=== PATIENT | female | born 1990 | race American Indian/Alaskan Native ===

== ENCOUNTER 2021-06-09 19:44 | Outpatient (CLI) | payer MEDICAID ==
[2021-06-09 20:21] VITALS: BP 113/58
--- NOTE | 2021-06-09 22:57 | Ultrasound Report ---
ULTRASOUND OBSTETRIC LIMITED INDICATION / CLINICAL INFORMATION: well being. Clinical Gestational Age (GA) in weeks, days: 28 weeks 1 day TECHNIQUE: Transabdominal. COMPARISON: None available. FINDINGS: Single live IUP in cephalic presentation. HEART RATE (beats per minute): 141 ADDITIONAL FINDINGS: Anterior placenta is free of the os. No evidence of placental abruption. Well-ci rcumscribed cystic structure in the retroplacental complex is of doubtful clinical significance and m ay reflect fibroid. IMPRESSION: 1. Single live intrauterine with heart rate measuring 141 bpm. 2. No acute abnormality. Signer Name: Dileep Mas MD Signed: 06/09/2021 10:53 PM Workstation Name: [id number]
== END 2021-06-09 22:39 | disposition home or self-care (01) ==
LOC: TRG 19:44 → APU 19:53 → TRG 22:39
PROVIDERS: ATTEND Obstetrics & Gynecology
DX: Z34.93 Encounter for supervision of normal pregnancy, unspecified, third trimester (principal); Z3A.28 28 weeks gestation of pregnancy
CPT/HCPCS: 59025; 76815

== ENCOUNTER 2021-08-07 09:09 | Inpatient (IN) | payer MEDICAID ==
--- NOTE | 2021-08-07 11:02 | History and Physical Report ---
History of Present Illness Date of examination: 08/07/21 Date of admission: 08/07/21 09:09 Chief complaint: scheduled induction due to obesity History of present illness: at 39.6wks by LMP c/w U/S. care at [facility] started at 26wks. Pt here for scheduled induction due to morbid obesity and was seen by [facility]. Pt admits to movement, denies LOF or vag bleed and not feeling ctx. labs with B positive, neg ab screen, rubella immune, VDRL, HepBsAg and HIV negative. 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: trichomonas (tx with flagyl this preg) - Obstetrical History Expected Date of Delivery: 08/08/21 Actual Gestation: 39 Week(s) 6 Day(s) : 6 Para: 3 Spontaneous Abortions: 2 Number of Living Children: 3 Medications and Allergies Allergies Allergy/AdvReac Type Severity Reaction Status Date / Time No Known Allergies Allergy Verified 08/07/21 10:25 Home Medications Medication Instructions Recorded Confirmed Last Taken Type Pnv with Ca,No.71/Iron/FA 1 cap PO DAILY 12/31/13 08/07/21 08/06/21 08:00 History [Vol-Plus Tablet] Review of Systems All systems: negative (none) - Vital Signs Vital signs: Vital Signs Pulse Pulse Ox 74 99 08/07/21 10:19 08/07/21 10:19 Temp Pulse Resp BP Pulse Ox 98.3 F 78 20 108/58 100 08/07/21 10:30 08/07/21 10:59 08/07/21 10:30 08/07/21 10:52 08/07/21 10:59 - Physical Exam Breasts: Positive: deferred Cardiovascular: Regular rate Lungs: Positive: Normal air movement Genitourinary (Female): Positive: normal external genitalia Vulva: both: normal (per nurse report) Uterus: Positive: enlarged - Obstetrical FHR: category 1 Uterine Contraction Monitor Mode: External Cervical Dilatation: 0 Cervical Effacement Percentage: 0 station: -2 Results Result Diagrams: 08/07/21 09:50 All other labs normal. Assessment and Plan Term preg, morbid obesity with non-favorable cervix, here for induction, GBS positive 1. Admit to labor and delivery 2. Labs seen with asymptomatic anemia 3. Cervidil induction 4. May have IV pain med or epidural when desired 5. Plan of care discussed. U/S done by me at bedside to verify vertex presentation. All questions encouraged and answered
[2021-08-07] MEDS ORDERED: miSOPROStol 200 MCG TAB PR PRN (11:03)
[2021-08-07] MEDS ORDERED: MINERAL OIL 30 ML ORAL LIQD PO PRN (11:03)
[2021-08-07] MEDS ORDERED: TERBUTALINE 1 MG/1 ML INJ SUB-Q PRN (11:03)
[2021-08-07] MEDS ORDERED: METHYLERGONOVINE MALEATE 0.2 MG/ML VIAL IM PRN (11:03)
[2021-08-07] MEDS ORDERED: AMPICILLIN/NS 2 GM/100 ML 2 GM/100 ML BAG IV ONE (11:03)
[2021-08-07] MEDS ORDERED: fentaNYL 100 MCG/2 ML INJ IV PRN (11:03)
[2021-08-07] MEDS ORDERED: ONDANSETRON 4 MG/2 ML INJ IV PRN (11:03)
[2021-08-07] MEDS ORDERED: ACETAMINOPHEN 325 MG TAB PO PRN (11:03)
[2021-08-07] MEDS ORDERED: DINOPROSTONE 10 MG VAG SUPP VG ONE (11:03)
[2021-08-07] MEDS ORDERED: LOPERAMIDE 2 MG CAP PO PRN (11:03)
[2021-08-07] MEDS ORDERED: NalbUPHINE 10 MG/1 ML INJ IV PRN (11:03)
[2021-08-07] MEDS ORDERED: PROMETHAZINE 25 MG RECT SUPP PR PRN (11:03)
[2021-08-07] MEDS ORDERED: ePHEDrine SULFATE 50 MG/1 ML INJ IV PRN (11:03)
[2021-08-07] MEDS ORDERED: LIDOCAINE (2%) 20 MG/1 ML VIAL 20 ML MDV INFILTRATI ONE (11:03)
[2021-08-07] MEDS ORDERED: OXYTOCIN 10 UNIT/1 ML INJ IM PRN (11:03)
[2021-08-07] MEDS ORDERED: CARBOPROST TROMETHAMINE 250 MCG/1 ML INJ IM PRN (11:03)
[2021-08-07 11:39] LABS: Hematocrit 31.2 % (30.3-42.9); Hemoglobin 9.8 gm/dl (10.1-14.3); Mean Corpuscular HGB Conc 32 % (30-34); Mean Corpuscular Volume 81 fl (79-97); Platelet Count 220 K/mm3 (140-440); Red Blood Count 3.85 M/mm3 (3.65-5.03)
[2021-08-07] MEDS ORDERED: OXYTOCIN DRIP 30 UNITS/500 ML BAG IV SCH (12:00)
[2021-08-07] MEDS ORDERED: DINOPROSTONE 10 MG VAG SUPP VG SCH (12:00)
[2021-08-08] MEDS: LACTATED RINGERS 1,000 ML IV SCH ×2 (01:52→07:31)
[2021-08-08] MEDS ORDERED: DINOPROSTONE 10 MG VAG SUPP VG ONE (02:30)
--- NOTE | 2021-08-08 18:11 | Progress Note ---
Assessment and Plan A: IUP@ 40 wks IOL for obesity GBS pos p: Continue routine L&D orders GBS protocal Continue cervical Pain med/Epidural prn Anticipate Subjective - Subjective Date of service: 08/08/21 (late entry for 8:20am) Principal diagnosis: IUP@ 40 wks Patient reports: movement normal, contractions Objective - Vital Signs Vital Signs: Vital Signs - 12hr 08/08/21 08/08/21 08/08/21 06:09 06:14 06:19 Temperature Pulse Rate 80 80 94 H Respiratory Rate Blood Pressure O2 Sat by Pulse 99 100 100 Oximetry O2 Sat by Pulse Oximetry [ Posterior Bilateral Throughout] 08/08/21 08/08/21 08/08/21 06:24 06:29 06:34 Temperature Pulse Rate 77 79 76 Respiratory Rate Blood Pressure O2 Sat by Pulse 100 99 99 Oximetry O2 Sat by Pulse Oximetry [ Posterior Bilateral Throughout] 08/08/21 08/08/21 08/08/21 06:39 06:44 06:49 Temperature Pulse Rate 70 76 74 Respiratory Rate Blood Pressure O2 Sat by Pulse 99 99 99 Oximetry O2 Sat by Pulse Oximetry [ Posterior Bilateral Throughout] 08/08/21 08/08/21 08/08/21 06:54 06:59 07:04 Temperature Pulse Rate 73 76 72 Respiratory Rate Blood Pressure O2 Sat by Pulse 100 99 99 Oximetry O2 Sat by Pulse Oximetry [ Posterior Bilateral Throughout] 08/08/21 08/08/21 08/08/21 07:09 07:14 07:17 Temperature 98.4 F Pulse Rate 82 83 86 Respiratory 18 Rate Blood Pressure O2 Sat by Pulse 99 99 100 Oximetry O2 Sat by Pulse Oximetry [ Posterior Bilateral Throughout] 08/08/21 08/08/21 08/08/21 07:19 07:24 07:29 Temperature Pulse Rate 83 81 69 Respiratory Rate Blood Pressure 106/56 O2 Sat by Pulse 99 100 100 Oximetry O2 Sat by Pulse 100 Oximetry [ Posterior Bilateral Throughout] 08/08/21 08/08/21 08/08/21 07:34 07:39 07:44 Temperature Pulse Rate 77 83 82 Respiratory Rate Blood Pressure O2 Sat by Pulse 99 100 99 Oximetry O2 Sat by Pulse Oximetry [ Posterior Bilateral Throughout] 08/08/21 08/08/21 08/08/21 07:49 07:54 07:59 Temperature Pulse Rate 76 73 71 Respiratory Rate Blood Pressure O2 Sat by Pulse 100 100 100 Oximetry O2 Sat by Pulse Oximetry [ Posterior Bilateral Throughout] 08/08/21 08/08/21 08/08/21 08:04 08:14 08:19 Temperature Pulse Rate 74 75 78 Respiratory Rate Blood Pressure O2 Sat by Pulse 99 100 100 Oximetry O2 Sat by Pulse Oximetry [ Posterior Bilateral Throughout] 08/08/21 08/08/21 08/08/21 08:24 08:29 08:34 Temperature Pulse Rate 77 76 82 Respiratory Rate Blood Pressure O2 Sat by Pulse 100 99 100 Oximetry O2 Sat by Pulse Oximetry [ Posterior Bilateral Throughout] 08/08/21 08/08/21 08/08/21 08:39 08:44 08:49 Temperature Pulse Rate 82 82 83 Respiratory Rate Blood Pressure O2 Sat by Pulse 100 99 99 Oximetry O2 Sat by Pulse Oximetry [ Posterior Bilateral Throughout] 08/08/21 08/08/21 08/08/21 09:00 09:05 09:10 Temperature Pulse Rate 87 83 80 Respiratory Rate Blood Pressure O2 Sat by Pulse 100 99 100 Oximetry O2 Sat by Pulse Oximetry [ Posterior Bilateral Throughout] 08/08/21 08/08/21 08/08/21 09:15 09:18 09:20 Temperature Pulse Rate 83 84 77 Respiratory Rate Blood Pressure O2 Sat by Pulse 100 89 98 Oximetry O2 Sat by Pulse Oximetry [ Posterior Bilateral Throughout] 08/08/21 08/08/21 08/08/21 09:25 09:30 09:35 Temperature Pulse Rate 82 69 80 Respiratory Rate Blood Pressure O2 Sat by Pulse 98 98 99 Oximetry O2 Sat by Pulse Oximetry [ Posterior Bilateral Throughout] 08/08/21 08/08/21 08/08/21 09:40 09:45 09:52 Temperature Pulse Rate 75 86 86 Respiratory Rate Blood Pressure O2 Sat by Pulse 100 100 100 Oximetry O2 Sat by Pulse Oximetry [ Posterior Bilateral Throughout] 08/08/21 08/08/21 08/08/21 09:57 10:02 10:07 Temperature Pulse Rate 78 76 78 Respiratory Rate Blood Pressure O2 Sat by Pulse 99 99 99 Oximetry O2 Sat by Pulse Oximetry [ Posterior Bilateral Throughout] 08/08/21 08/08/21 08/08/21 10:12 10:17 10:22 Temperature Pulse Rate 74 83 80 Respiratory Rate Blood Pressure O2 Sat by Pulse 99 99 99 Oximetry O2 Sat by Pulse Oximetry [ Posterior Bilateral Throughout] 08/08/21 08/08/21 08/08/21 10:27 10:32 10:37 Temperature Pulse Rate 76 75 78 Respiratory Rate Blood Pressure O2 Sat by Pulse 99 98 98 Oximetry O2 Sat by Pulse Oximetry [ Posterior Bilateral Throughout] 08/08/21 08/08/21 08/08/21 10:42 10:47 10:52 Temperature Pulse Rate 78 77 79 Respiratory Rate Blood Pressure O2 Sat by Pulse 99 99 98 Oximetry O2 Sat by Pulse Oximetry [ Posterior Bilateral Throughout] 08/08/21 08/08/21 08/08/21 10:57 11:02 11:07 Temperature Pulse Rate 80 77 78 Respiratory Rate Blood Pressure O2 Sat by Pulse 99 99 98 Oximetry O2 Sat by Pulse Oximetry [ Posterior Bilateral Throughout] 08/08/21 08/08/21 08/08/21 11:12 11:17 11:22 Temperature Pulse Rate 79 74 74 Respiratory Rate Blood Pressure O2 Sat by Pulse 98 100 99 Oximetry O2 Sat by Pulse Oximetry [ Posterior Bilateral Throughout] 08/08/21 08/08/21 08/08/21 11:23 11:25 11:27 Temperature 98.3 F Pulse Rate 81 86 Respiratory 18 Rate Blood Pressure 105/50 O2 Sat by Pulse 99 100 Oximetry O2 Sat by Pulse Oximetry [ Posterior Bilateral Throughout] 08/08/21 08/08/21 08/08/21 11:32 11:33 11:37 Temperature Pulse Rate 81 83 77 Respiratory Rate Blood Pressure O2 Sat by Pulse 100 92 98 Oximetry O2 Sat by Pulse Oximetry [ Posterior Bilateral Throughout] 08/08/21 08/08/21 08/08/21 11:42 11:47 11:52 Temperature Pulse Rate 74 72 77 Respiratory Rate Blood Pressure O2 Sat by Pulse 98 98 98 Oximetry O2 Sat by Pulse Oximetry [ Posterior Bilateral Throughout] 08/08/21 08/08/21 08/08/21 11:57 12:02 12:07 Temperature Pulse Rate 73 75 79 Respiratory Rate Blood Pressure O2 Sat by Pulse 97 97 98 Oximetry O2 Sat by Pulse Oximetry [ Posterior Bilateral Throughout] 08/08/21 08/08/21 08/08/21 12:12 12:17 12:22 Temperature Pulse Rate 68 68 73 Respiratory Rate Blood Pressure O2 Sat by Pulse 99 98 98 Oximetry O2 Sat by Pulse Oximetry [ Posterior Bilateral Throughout] 08/08/21 08/08/21 08/08/21 12:27 12:32 12:37 Temperature Pulse Rate 79 78 75 Respiratory Rate Blood Pressure O2 Sat by Pulse 98 99 99 Oximetry O2 Sat by Pulse Oximetry [ Posterior Bilateral Throughout] 08/08/21 08/08/21 08/08/21 12:42 12:47 12:52 Temperature Pulse Rate 80 75 74 Respiratory Rate Blood Pressure O2 Sat by Pulse 98 100 100 Oximetry O2 Sat by Pulse Oximetry [ Posterior Bilateral Throughout] 08/08/21 08/08/21 08/08/21 12:57 13:02 13:07 Temperature Pulse Rate 88 71 77 Respiratory Rate Blood Pressure O2 Sat by Pulse 100 100 100 Oximetry O2 Sat by Pulse Oximetry [ Posterior Bilateral Throughout] 08/08/21 08/08/21 08/08/21 13:12 13:17 13:22 Temperature Pulse Rate 73 74 74 Respiratory Rate Blood Pressure O2 Sat by Pulse 100 100 100 Oximetry O2 Sat by Pulse Oximetry [ Posterior Bilateral Throughout] 08/08/21 08/08/21 08/08/21 13:27 13:32 13:37 Temperature Pulse Rate 77 77 88 Respiratory Rate Blood Pressure O2 Sat by Pulse 100 100 100 Oximetry O2 Sat by Pulse Oximetry [ Posterior Bilateral Throughout] 08/08/21 08/08/21 08/08/21 13:42 13:47 13:52 Temperature Pulse Rate 79 78 80 Respiratory Rate Blood Pressure O2 Sat by Pulse 100 100 100 Oximetry O2 Sat by Pulse Oximetry [ Posterior Bilateral Throughout] 08/08/21 08/08/21 08/08/21 13:57 14:02 14:07 Temperature Pulse Rate 78 82 76 Respiratory Rate Blood Pressure O2 Sat by Pulse 99 99 100 Oximetry O2 Sat by Pulse Oximetry [ Posterior Bilateral Throughout] 08/08/21 08/08/21 08/08/21 14:12 14:17 14:22 Temperature Pulse Rate 77 75 84 Respiratory Rate Blood Pressure O2 Sat by Pulse 100 100 100 Oximetry O2 Sat by Pulse Oximetry [ Posterior Bilateral Throughout] 08/08/21 08/08/21 08/08/21 14:26 14:27 14:32 Temperature 98.9 F Pulse Rate 81 79 78 Respiratory 16 Rate Blood Pressure 122/57 O2 Sat by Pulse 99 100 Oximetry O2 Sat by Pulse Oximetry [ Posterior Bilateral Throughout] 08/08/21 08/08/21 08/08/21 14:37 14:42 14:47 Temperature Pulse Rate 79 79 78 Respiratory Rate Blood Pressure O2 Sat by Pulse 99 100 100 Oximetry O2 Sat by Pulse Oximetry [ Posterior Bilateral Throughout] 08/08/21 08/08/21 08/08/21 14:52 14:57 15:02 Temperature Pulse Rate 78 75 74 Respiratory Rate Blood Pressure O2 Sat by Pulse 99 99 99 Oximetry O2 Sat by Pulse Oximetry [ Posterior Bilateral Throughout] 08/08/21 08/08/21 08/08/21 15:07 15:12 15:22 Temperature Pulse Rate 80 79 79 Respiratory Rate Blood Pressure O2 Sat by Pulse 99 99 100 Oximetry O2 Sat by Pulse Oximetry [ Posterior Bilateral Throughout] 08/08/21 08/08/21 08/08/21 15:27 15:32 15:37 Temperature Pulse Rate 81 81 76 Respiratory Rate Blood Pressure O2 Sat by Pulse 100 99 100 Oximetry O2 Sat by Pulse Oximetry [ Posterior Bilateral Throughout] 08/08/21 08/08/21 08/08/21 15:42 15:47 15:52 Temperature Pulse Rate 79 79 80 Respiratory Rate Blood Pressure O2 Sat by Pulse 100 100 100 Oximetry O2 Sat by Pulse Oximetry [ Posterior Bilateral Throughout] 08/08/21 08/08/21 08/08/21 15:57 16:02 16:07 Temperature Pulse Rate 81 92 H 75 Respiratory Rate Blood Pressure O2 Sat by Pulse 100 100 100 Oximetry O2 Sat by Pulse Oximetry [ Posterior Bilateral Throughout] 08/08/21 16:09 Temperature Pulse Rate 70 Respiratory Rate Blood Pressure O2 Sat by Pulse 83 L Oximetry O2 Sat by Pulse Oximetry [ Posterior Bilateral Throughout] - Exam Breasts: deferred Abdomen: Present: normal appearance, soft, normal bowel sounds, other (gravid) Vulva: both: normal FHR: auscultation normal, category 1 Uterine Contraction Monitor Mode: External Uterine Contraction Pattern: Irregular Uterine Tone Measurement Phase: Resting Uterine Contraction Intensity: Mild Extremities: normal - Labs Labs: Abnormal Labs 08/07/21 09:50 Hgb 9.8 L MCH 25 L RDW 19.0 H Laboratory Results - last 24 hr 08/07/21 09:50 Syphilis IgG Antibody Nonreactive
[2021-08-08] MEDS: miSOPROStol 25 MCG TAB PO SCH ×2 (18:37→22:54)
[2021-08-09] MEDS: miSOPROStol 25 MCG TAB PO SCH (03:00)
[2021-08-09] MEDS ORDERED: AMPICILLIN/NS 2 GM/100 ML 2 GM/100 ML BAG IV ONE (09:02)
[2021-08-09] MEDS: OXYTOCIN DRIP 30 UNITS/500 ML BAG IV SCH ×2 (09:12→09:30)
[2021-08-09] MEDS: AMPICILLIN/NS 1 GM/50 ML 1 GM/50 ML BAG IV SCH ×2 (13:18→17:23)
[2021-08-09] MEDS: LACTATED RINGERS 1,000 ML IV SCH ×4 (16:46→18:32)
[2021-08-09] MEDS ORDERED: ePHEDrine SULFATE 50 MG/1 ML INJ IV PRN (17:13)
[2021-08-09] MEDS ORDERED: diphenhydrAMINE 50 MG/ML VIAL IV PRN (17:13)
[2021-08-09] MEDS ORDERED: NALOXONE 2 MG/2 ML INJ IV PRN (17:13)
[2021-08-09] MEDS ORDERED: ONDANSETRON 4 MG/2 ML INJ IV PRN (17:13)
[2021-08-09] MEDS ORDERED: NalbUPHINE 10 MG/1 ML INJ IV PRN (17:13)
--- NOTE | 2021-08-09 17:19 | Anesthesia Consultation ---
Anesthesia Consult and Med Hx Date of service: 08/09/21 - Airway Anesthetic Teeth Evaluation: Good ROM Head & Neck: Adequate Mental/Hyoid Distance: Adequate Mallampati Class: Class III Intubation Access Assessment: Possibly Difficult - Pulmonary Exam CTA: Yes - Cardiac Exam Cardiac Exam: RRR - Pre-Operative Health Status ASA Pre-Surgery Classification: ASA2 Proposed Anesthetic Plan: Epidural - Pulmonary Hx Smoking: No Hx Asthma: Yes (last attack was at 3yo) COPD: No Hx Pneumonia: No Hx Sleep Apnea: No - Cardiovascular System Hx Hypertension: No Hx Heart Attack/AMI: No Hx Angina: No - Central Nervous System Hx Seizures: No Hx Psychiatric Problems: No - Gastrointestinal Hx Gastroesophageal Reflux Disease: No - Endocrine Hx Renal Disease: No Hx End Stage Renal Disease: No Hx Liver Disease: No Hx Insulin Dependent Diabetes: No Hx Non-Insulin Dependent Diabetes: No Hx Hypothyroidism: No Hx Hyperthyroidism: No - Hematic Hx Anemia: No Hx Sickle Cell Disease: No - Other Systems Hx Alcohol Use: No Hx Obesity: Yes (morbid obesity)
--- NOTE | 2021-08-09 17:49 | Progress Note ---
Labor Epidural - Labor Epidural Start Time: 17:35 Stop Time: 17:49 Performed by:: HONG ALDRIDGE (Adry Blood RAMONE) Procedure: Patient is requesting epidural for labor and pain. H&P, labs were reviewed. Patient IDed, H&P reviewed, all questions and concerns were answered, and consent was signed. Timeout was performed at bedside. Patient in sitting position. Sterile prep and drape was performed. 3ml of 1% lidocaine skin wheal at L[3]- L [4]. 17-gauge Tuohy epidural needle was advanced to loss of resistance with air technique 7cm. Negative CSF negative blood. Epidural catheter advanced to [12] centimeters. [negative] Aspiration [negative] test dose. Sterile dressing applied. Patient tolerated procedure.
[2021-08-09] MEDS ORDERED: LACTATED RINGERS 250 ML IV SOLN IV ONE (18:00)
[2021-08-09] MEDS ORDERED: fentaNYL-BUPIV 2 MCG/ML-0.125% 200 MCG/100 ML BAG EPIDURAL SCH (18:00)
--- NOTE | 2021-08-09 20:47 | Event Note ---
Date: 08/09/21 pt seen earlier and pelvic exam unchanged. Epidural recommended and pt accepted same and received epidural and now comfortable. IV Pitocin at 14mu/min. AROM done with copious clear fluid. IUPC placed without difficulty and FSE also placed with areas of loss of contact. Pt to continue Amp for GBS positive. Will continue augmentation with pitocin and position laterally. Anticipate vaginal delivery.
--- NOTE | 2021-08-09 21:27 | Event Note ---
Date: 08/09/21 Pt re-evaluated with recurrent late decel and pelvic now /-1, pt repositioned and pitocin turned off. scalp stimulation with excellent response. Ctx occured every 1min and when pitocin off, FHR returned to category II. Will re-evaluate in 30mins. Expect .
--- NOTE | 2021-08-09 23:18 | Procedure Note ---
OB Delivery Note - Delivery Date of Delivery: 08/09/21 Surgeon: LUCIEN ULLOA Estimated blood loss: 300cc - Vaginal Delivery presentation: vertex Delivery position: OA Intrapartum events: prolonged active phase, mult. late decelerations Delivery induction: cervidil Delivery augmentation: rupture of membranes, pitocin (and pt received cytotec after cervidil prior to pitocin) Delivery monitor: external FHT, external uterine, internal FHT, internal uterine Route of delivery: Delivery placenta: spontaneous Delivery cord: 3 umbilical vessels Episiotomy: none Delivery laceration: 1st degree (to perineum and right and left labia) Delivery repair: chromic (2-chromic running locked suture) Anesthesia: epidural Delivery comments: Protracted active phase over 2-3day induction. Recurrent late decel resolved with repositioning. SAVD of viable male , APGARS 8/9; Placenta delivered complete and lacerations 1st degree x3 sustained and repaired with 2-0 chromic interrupted. Cervix visualized and noted to have no lacerations. Bimanual done and pt given cytotec due to protracted 3 day induction with multiple agents. Mom and baby stable. EBL 300cc - Infant A at 1 minute: 8 at 5 minutes: 9 (wt 3050g, blood tinged fluid) Infant Gender: Male
--- NOTE | 2021-08-10 00:28 | Progress Note ---
Assessment and Plan PPD#1 doing fair 1. Routine care 2. Await CBC 12 hrs post delivery per routine check All questions encouraged and answered Subjective Date of service: 08/10/21 Principal diagnosis: PPD#1 Interval history: Pt comfortable. Pt desires to breast and bottle feed. vag bleed like a period without clots. Pt has voided since delivery Objective - Constitutional Vitals: Vital Signs - 12hr 08/09/21 08/09/21 08/09/21 12:30 12:31 12:36 Temperature Pulse Rate 75 76 86 Respiratory Rate Blood Pressure 121/73 Blood Pressure [Left] O2 Sat by Pulse 100 100 Oximetry O2 Sat by Pulse Oximetry [ Posterior Bilateral Throughout] 08/09/21 08/09/21 08/09/21 12:41 12:46 12:51 Temperature Pulse Rate 77 71 76 Respiratory Rate Blood Pressure 123/61 Blood Pressure [Left] O2 Sat by Pulse 100 100 100 Oximetry O2 Sat by Pulse Oximetry [ Posterior Bilateral Throughout] 08/09/21 08/09/21 08/09/21 12:56 13:00 13:01 Temperature Pulse Rate 76 73 75 Respiratory Rate Blood Pressure 112/60 Blood Pressure [Left] O2 Sat by Pulse 100 100 Oximetry O2 Sat by Pulse Oximetry [ Posterior Bilateral Throughout] 08/09/21 08/09/21 08/09/21 13:06 13:14 13:19 Temperature Pulse Rate 75 87 78 Respiratory Rate Blood Pressure Blood Pressure [Left] O2 Sat by Pulse 100 100 100 Oximetry O2 Sat by Pulse Oximetry [ Posterior Bilateral Throughout] 08/09/21 08/09/21 08/09/21 13:24 13:29 13:34 Temperature Pulse Rate 71 67 67 Respiratory Rate Blood Pressure Blood Pressure [Left] O2 Sat by Pulse 100 99 99 Oximetry O2 Sat by Pulse Oximetry [ Posterior Bilateral Throughout] 08/09/21 08/09/21 08/09/21 13:39 13:44 13:49 Temperature Pulse Rate 63 62 63 Respiratory Rate Blood Pressure Blood Pressure [Left] O2 Sat by Pulse 99 100 100 Oximetry O2 Sat by Pulse Oximetry [ Posterior Bilateral Throughout] 08/09/21 08/09/21 08/09/21 13:54 13:59 14:04 Temperature Pulse Rate 69 64 67 Respiratory Rate Blood Pressure Blood Pressure [Left] O2 Sat by Pulse 100 100 100 Oximetry O2 Sat by Pulse Oximetry [ Posterior Bilateral Throughout] 08/09/21 08/09/21 08/09/21 14:09 14:14 14:19 Temperature Pulse Rate 69 70 69 Respiratory Rate Blood Pressure Blood Pressure [Left] O2 Sat by Pulse 100 100 99 Oximetry O2 Sat by Pulse Oximetry [ Posterior Bilateral Throughout] 08/09/21 08/09/21 08/09/21 14:24 14:29 14:30 Temperature Pulse Rate 65 62 65 Respiratory Rate Blood Pressure 119/59 Blood Pressure [Left] O2 Sat by Pulse 100 100 Oximetry O2 Sat by Pulse Oximetry [ Posterior Bilateral Throughout] 08/09/21 08/09/21 08/09/21 14:34 14:39 14:44 Temperature Pulse Rate 66 68 64 Respiratory Rate Blood Pressure Blood Pressure [Left] O2 Sat by Pulse 99 99 99 Oximetry O2 Sat by Pulse Oximetry [ Posterior Bilateral Throughout] 08/09/21 08/09/21 08/09/21 14:49 14:54 14:59 Temperature Pulse Rate 67 69 67 Respiratory Rate Blood Pressure Blood Pressure [Left] O2 Sat by Pulse 100 100 100 Oximetry O2 Sat by Pulse Oximetry [ Posterior Bilateral Throughout] 08/09/21 08/09/21 08/09/21 15:01 15:04 15:09 Temperature Pulse Rate 71 69 67 Respiratory Rate Blood Pressure 125/66 Blood Pressure [Left] O2 Sat by Pulse 100 100 Oximetry O2 Sat by Pulse Oximetry [ Posterior Bilateral Throughout] 08/09/21 08/09/21 08/09/21 15:14 15:19 15:24 Temperature Pulse Rate 69 67 68 Respiratory Rate Blood Pressure Blood Pressure [Left] O2 Sat by Pulse 99 100 100 Oximetry O2 Sat by Pulse Oximetry [ Posterior Bilateral Throughout] 08/09/21 08/09/21 08/09/21 15:29 15:31 15:34 Temperature Pulse Rate 69 64 68 Respiratory Rate Blood Pressure 119/65 Blood Pressure [Left] O2 Sat by Pulse 100 100 Oximetry O2 Sat by Pulse Oximetry [ Posterior Bilateral Throughout] 08/09/21 08/09/21 08/09/21 15:39 15:44 15:49 Temperature Pulse Rate 78 67 71 Respiratory Rate Blood Pressure Blood Pressure [Left] O2 Sat by Pulse 100 100 100 Oximetry O2 Sat by Pulse Oximetry [ Posterior Bilateral Throughout] 08/09/21 08/09/21 08/09/21 15:54 15:59 16:00 Temperature Pulse Rate 63 70 69 Respiratory Rate Blood Pressure 116/67 Blood Pressure [Left] O2 Sat by Pulse 100 100 Oximetry O2 Sat by Pulse Oximetry [ Posterior Bilateral Throughout] 08/09/21 08/09/21 08/09/21 16:04 16:09 16:14 Temperature Pulse Rate 69 69 65 Respiratory Rate Blood Pressure Blood Pressure [Left] O2 Sat by Pulse 100 100 100 Oximetry O2 Sat by Pulse Oximetry [ Posterior Bilateral Throughout] 08/09/21 08/09/21 08/09/21 16:15 16:19 16:24 Temperature 98.1 F Pulse Rate 66 66 Respiratory 18 Rate Blood Pressure Blood Pressure [Left] O2 Sat by Pulse 100 100 Oximetry O2 Sat by Pulse Oximetry [ Posterior Bilateral Throughout] 08/09/21 08/09/21 08/09/21 16:29 16:31 16:34 Temperature Pulse Rate 76 67 83 Respiratory Rate Blood Pressure 120/67 Blood Pressure [Left] O2 Sat by Pulse 100 100 Oximetry O2 Sat by Pulse Oximetry [ Posterior Bilateral Throughout] 08/09/21 08/09/21 08/09/21 16:39 16:44 16:55 Temperature Pulse Rate 72 75 68 Respiratory Rate Blood Pressure Blood Pressure [Left] O2 Sat by Pulse 100 100 100 Oximetry O2 Sat by Pulse Oximetry [ Posterior Bilateral Throughout] 08/09/21 08/09/21 08/09/21 17:00 17:05 17:10 Temperature Pulse Rate 72 76 80 Respiratory Rate Blood Pressure 118/61 Blood Pressure [Left] O2 Sat by Pulse 100 100 100 Oximetry O2 Sat by Pulse Oximetry [ Posterior Bilateral Throughout] 08/09/21 08/09/21 08/09/21 17:15 17:20 17:25 Temperature Pulse Rate 74 82 75 Respiratory Rate Blood Pressure Blood Pressure [Left] O2 Sat by Pulse 100 100 100 Oximetry O2 Sat by Pulse Oximetry [ Posterior Bilateral Throughout] 08/09/21 08/09/21 08/09/21 17:30 17:31 17:35 Temperature Pulse Rate 80 84 85 Respiratory Rate Blood Pressure Blood Pressure [Left] O2 Sat by Pulse 100 89 100 Oximetry O2 Sat by Pulse Oximetry [ Posterior Bilateral Throughout] 08/09/21 08/09/21 08/09/21 17:40 17:45 17:46 Temperature Pulse Rate 86 89 88 Respiratory Rate Blood Pressure 135/60 Blood Pressure [Left] O2 Sat by Pulse 100 100 Oximetry O2 Sat by Pulse Oximetry [ Posterior Bilateral Throughout] 08/09/21 08/09/21 08/09/21 17:47 17:50 17:52 Temperature Pulse Rate 85 78 91 H Respiratory Rate Blood Pressure 134/63 131/71 131/63 Blood Pressure [Left] O2 Sat by Pulse 100 Oximetry O2 Sat by Pulse Oximetry [ Posterior Bilateral Throughout] 08/09/21 08/09/21 08/09/21 17:53 17:55 17:58 Temperature Pulse Rate 80 93 H 94 H Respiratory Rate Blood Pressure 127/59 132/56 119/74 Blood Pressure [Left] O2 Sat by Pulse 100 Oximetry O2 Sat by Pulse Oximetry [ Posterior Bilateral Throughout] 08/09/21 08/09/21 08/09/21 18:00 18:02 18:03 Temperature Pulse Rate 92 H 92 H 79 Respiratory Rate Blood Pressure 105/65 125/56 122/58 Blood Pressure [Left] O2 Sat by Pulse 100 Oximetry O2 Sat by Pulse Oximetry [ Posterior Bilateral Throughout] 08/09/21 08/09/21 08/09/21 18:05 18:07 18:09 Temperature Pulse Rate 71 75 76 Respiratory Rate Blood Pressure 123/59 107/67 104/52 Blood Pressure [Left] O2 Sat by Pulse 100 Oximetry O2 Sat by Pulse Oximetry [ Posterior Bilateral Throughout] 08/09/21 08/09/21 08/09/21 18:10 18:11 18:14 Temperature Pulse Rate 76 83 79 Respiratory Rate Blood Pressure 111/55 113/56 Blood Pressure [Left] O2 Sat by Pulse 100 Oximetry O2 Sat by Pulse Oximetry [ Posterior Bilateral Throughout] 08/09/21 08/09/21 08/09/21 18:15 18:17 18:19 Temperature Pulse Rate 76 82 75 Respiratory Rate Blood Pressure 116/58 114/56 116/58 Blood Pressure [Left] O2 Sat by Pulse 100 Oximetry O2 Sat by Pulse Oximetry [ Posterior Bilateral Throughout] 08/09/21 08/09/21 08/09/21 18:20 18:21 18:23 Temperature Pulse Rate 76 86 60 Respiratory Rate Blood Pressure 111/59 116/59 Blood Pressure [Left] O2 Sat by Pulse 100 Oximetry O2 Sat by Pulse Oximetry [ Posterior Bilateral Throughout] 08/09/21 08/09/21 08/09/21 18:25 18:27 18:29 Temperature Pulse Rate 78 78 76 Respiratory Rate Blood Pressure 122/57 120/59 122/55 Blood Pressure [Left] O2 Sat by Pulse 100 Oximetry O2 Sat by Pulse Oximetry [ Posterior Bilateral Throughout] 08/09/21 08/09/21 08/09/21 18:30 18:31 18:35 Temperature Pulse Rate 74 72 71 Respiratory Rate Blood Pressure 124/58 Blood Pressure [Left] O2 Sat by Pulse 100 100 Oximetry O2 Sat by Pulse Oximetry [ Posterior Bilateral Throughout] 08/09/21 08/09/21 08/09/21 18:40 18:45 18:47 Temperature Pulse Rate 74 71 65 Respiratory Rate Blood Pressure 117/57 Blood Pressure [Left] O2 Sat by Pulse 100 100 Oximetry O2 Sat by Pulse Oximetry [ Posterior Bilateral Throughout] 08/09/21 08/09/21 08/09/21 18:50 18:55 19:00 Temperature Pulse Rate 70 73 72 Respiratory Rate Blood Pressure Blood Pressure [Left] O2 Sat by Pulse 100 100 100 Oximetry O2 Sat by Pulse Oximetry [ Posterior Bilateral Throughout] 08/09/21 08/09/21 08/09/21 19:02 19:05 19:10 Temperature Pulse Rate 67 72 76 Respiratory Rate Blood Pressure 110/55 Blood Pressure [Left] O2 Sat by Pulse 100 100 Oximetry O2 Sat by Pulse Oximetry [ Posterior Bilateral Throughout] 08/09/21 08/09/21 08/09/21 19:15 19:17 19:20 Temperature Pulse Rate 90 78 73 Respiratory Rate Blood Pressure 101/55 Blood Pressure [Left] O2 Sat by Pulse 99 100 Oximetry O2 Sat by Pulse Oximetry [ Posterior Bilateral Throughout] 08/09/21 08/09/21 08/09/21 19:22 19:25 19:30 Temperature Pulse Rate 76 73 Respiratory Rate Blood Pressure Blood Pressure [Left] O2 Sat by Pulse 100 100 Oximetry O2 Sat by Pulse 100 Oximetry [ Posterior Bilateral Throughout] 08/09/21 08/09/21 08/09/21 19:32 19:35 19:40 Temperature Pulse Rate 65 68 77 Respiratory Rate Blood Pressure 95/54 Blood Pressure [Left] O2 Sat by Pulse 100 100 Oximetry O2 Sat by Pulse Oximetry [ Posterior Bilateral Throughout] 08/09/21 08/09/21 08/09/21 19:45 19:47 19:50 Temperature Pulse Rate 69 77 77 Respiratory Rate Blood Pressure 96/51 Blood Pressure [Left] O2 Sat by Pulse 100 100 Oximetry O2 Sat by Pulse Oximetry [ Posterior Bilateral Throughout] 08/09/21 08/09/21 08/09/21 19:51 19:55 20:00 Temperature Pulse Rate 79 67 72 Respiratory Rate Blood Pressure Blood Pressure [Left] O2 Sat by Pulse 92 100 100 Oximetry O2 Sat by Pulse Oximetry [ Posterior Bilateral Throughout] 08/09/21 08/09/21 08/09/21 20:03 20:05 20:10 Temperature Pulse Rate 76 66 75 Respiratory Rate Blood Pressure 112/55 Blood Pressure [Left] O2 Sat by Pulse 100 99 Oximetry O2 Sat by Pulse Oximetry [ Posterior Bilateral Throughout] 08/09/21 08/09/21 08/09/21 20:15 20:17 20:20 Temperature Pulse Rate 73 74 75 Respiratory Rate Blood Pressure 107/52 Blood Pressure [Left] O2 Sat by Pulse 100 100 Oximetry O2 Sat by Pulse Oximetry [ Posterior Bilateral Throughout] 08/09/21 08/09/21 08/09/21 20:25 20:30 20:33 Temperature Pulse Rate 67 79 67 Respiratory Rate Blood Pressure 111/56 Blood Pressure [Left] O2 Sat by Pulse 100 100 0 L Oximetry O2 Sat by Pulse Oximetry [ Posterior Bilateral Throughout] 08/09/21 08/09/21 08/09/21 20:35 20:40 20:43 Temperature Pulse Rate 66 63 85 Respiratory Rate Blood Pressure Blood Pressure [Left] O2 Sat by Pulse 100 100 91 Oximetry O2 Sat by Pulse Oximetry [ Posterior Bilateral Throughout] 08/09/21 08/09/21 08/09/21 20:45 20:50 20:55 Temperature Pulse Rate 81 71 62 Respiratory Rate Blood Pressure 102/53 Blood Pressure [Left] O2 Sat by Pulse 100 96 100 Oximetry O2 Sat by Pulse Oximetry [ Posterior Bilateral Throughout] 08/09/21 08/09/21 08/09/21 21:00 21:04 21:05 Temperature Pulse Rate 77 73 72 Respiratory Rate Blood Pressure 110/55 Blood Pressure [Left] O2 Sat by Pulse 100 100 Oximetry O2 Sat by Pulse Oximetry [ Posterior Bilateral Throughout] 08/09/21 08/09/21 08/09/21 21:10 21:15 21:18 Temperature Pulse Rate 63 70 70 Respiratory Rate Blood Pressure 118/57 Blood Pressure [Left] O2 Sat by Pulse 100 100 Oximetry O2 Sat by Pulse Oximetry [ Posterior Bilateral Throughout] 08/09/21 08/09/21 08/09/21 21:20 21:25 21:30 Temperature Pulse Rate 69 67 69 Respiratory Rate Blood Pressure Blood Pressure [Left] O2 Sat by Pulse 100 100 100 Oximetry O2 Sat by Pulse Oximetry [ Posterior Bilateral Throughout] 08/09/21 08/09/21 08/09/21 21:33 21:35 21:40 Temperature Pulse Rate 73 71 68 Respiratory Rate Blood Pressure 120/64 Blood Pressure [Left] O2 Sat by Pulse 100 100 Oximetry O2 Sat by Pulse Oximetry [ Posterior Bilateral Throughout] 08/09/21 08/09/21 08/09/21 21:45 21:48 21:50 Temperature Pulse Rate 70 68 70 Respiratory Rate Blood Pressure 122/59 Blood Pressure [Left] O2 Sat by Pulse 100 100 Oximetry O2 Sat by Pulse Oximetry [ Posterior Bilateral Throughout] 08/09/21 08/09/21 08/09/21 21:55 22:00 22:03 Temperature Pulse Rate 72 81 76 Respiratory Rate Blood Pressure 118/57 Blood Pressure [Left] O2 Sat by Pulse 100 100 Oximetry O2 Sat by Pulse Oximetry [ Posterior Bilateral Throughout] 08/09/21 08/09/21 08/09/21 22:04 22:05 22:10 Temperature Pulse Rate 68 70 74 Respiratory Rate Blood Pressure Blood Pressure [Left] O2 Sat by Pulse 86 100 100 Oximetry O2 Sat by Pulse Oximetry [ Posterior Bilateral Throughout] 08/09/21 08/09/21 08/09/21 22:15 22:19 22:20 Temperature Pulse Rate 74 77 79 Respiratory Rate Blood Pressure 100/48 Blood Pressure [Left] O2 Sat by Pulse 100 100 Oximetry O2 Sat by Pulse Oximetry [ Posterior Bilateral Throughout] 08/09/21 08/09/21 08/09/21 22:25 22:30 22:33 Temperature Pulse Rate 71 82 82 Respiratory Rate Blood Pressure Blood Pressure [Left] O2 Sat by Pulse 100 100 89 Oximetry O2 Sat by Pulse Oximetry [ Posterior Bilateral Throughout] 08/09/21 08/09/21 08/09/21 22:34 22:35 22:40 Temperature Pulse Rate 91 H 85 113 H Respiratory Rate Blood Pressure 117/56 Blood Pressure [Left] O2 Sat by Pulse 100 100 Oximetry O2 Sat by Pulse Oximetry [ Posterior Bilateral Throughout] 08/09/21 08/09/21 08/09/21 22:45 22:47 22:50 Temperature Pulse Rate 88 155 H 89 Respiratory Rate Blood Pressure 113/51 Blood Pressure [Left] O2 Sat by Pulse 100 100 Oximetry O2 Sat by Pulse Oximetry [ Posterior Bilateral Throughout] 08/09/21 08/09/21 08/09/21 22:55 23:00 23:02 Temperature Pulse Rate 85 85 85 Respiratory Rate Blood Pressure 107/52 Blood Pressure [Left] O2 Sat by Pulse 100 100 Oximetry O2 Sat by Pulse Oximetry [ Posterior Bilateral Throughout] 08/09/21 08/09/21 08/09/21 23:05 23:10 23:15 Temperature Pulse Rate 83 91 H 85 Respiratory Rate Blood Pressure Blood Pressure [Left] O2 Sat by Pulse 100 100 100 Oximetry O2 Sat by Pulse Oximetry [ Posterior Bilateral Throughout] 08/09/21 08/09/21 08/09/21 23:17 23:20 23:25 Temperature Pulse Rate 74 71 83 Respiratory Rate Blood Pressure 97/51 Blood Pressure [Left] O2 Sat by Pulse 100 100 Oximetry O2 Sat by Pulse Oximetry [ Posterior Bilateral Throughout] 08/09/21 08/09/21 08/09/21 23:29 23:30 23:32 Temperature Pulse Rate 82 78 75 Respiratory Rate Blood Pressure 120/58 Blood Pressure [Left] O2 Sat by Pulse 90 100 Oximetry O2 Sat by Pulse Oximetry [ Posterior Bilateral Throughout] 08/09/21 08/09/21 08/09/21 23:35 23:40 23:45 Temperature Pulse Rate 83 91 H 85 Respiratory Rate Blood Pressure Blood Pressure [Left] O2 Sat by Pulse 100 100 100 Oximetry O2 Sat by Pulse Oximetry [ Posterior Bilateral Throughout] 08/09/21 08/09/21 08/09/21 23:47 23:50 23:52 Temperature 98.1 F Pulse Rate 88 71 72 Respiratory 18 Rate Blood Pressure 111/57 Blood Pressure 111/57 [Left] O2 Sat by Pulse 100 100 Oximetry O2 Sat by Pulse Oximetry [ Posterior Bilateral Throughout] 08/09/21 08/10/21 08/10/21 23:55 00:00 00:02 Temperature Pulse Rate 80 75 70 Respiratory Rate Blood Pressure 112/64 Blood Pressure [Left] O2 Sat by Pulse 92 100 Oximetry O2 Sat by Pulse Oximetry [ Posterior Bilateral Throughout] 08/10/21 08/10/21 08/10/21 00:05 00:10 00:15 Temperature Pulse Rate 77 78 76 Respiratory Rate Blood Pressure Blood Pressure [Left] O2 Sat by Pulse 100 100 100 Oximetry O2 Sat by Pulse Oximetry [ Posterior Bilateral Throughout] 08/10/21 08/10/21 00:17 00:20 Temperature Pulse Rate 77 70 Respiratory Rate Blood Pressure 115/56 Blood Pressure [Left] O2 Sat by Pulse 100 Oximetry O2 Sat by Pulse Oximetry [ Posterior Bilateral Throughout] General appearance: Present: no acute distress - Respiratory Respiratory effort: normal - Breasts Breasts: normal - Cardiovascular Rhythm: regular Extremities: No edema - Gastrointestinal General gastrointestinal: Present: soft, non-tender - Genitourinary Female genitourinary: other (Lochia moderate) - Neurologic Neurologic: moves all extremities - Psychiatric Psychiatric: appropriate mood/affect - Labs CBC & Chem 7: 08/07/21 09:50 Medications & Allergies - Medications Allergies/Adverse Reactions: Allergies No Known Allergies Allergy (Verified 08/07/21 10:25) Home Medications: Home Medications Medication Instructions Recorded Confirmed Last Taken Type Pnv with Ca,No.71/Iron/FA 1 cap PO DAILY 12/31/13 08/07/21 08/06/21 08:00 History [Vol-Plus Tablet] Active Medications: Generic Name Dose Route Start Last Admin Trade Name Freq PRN Reason Stop Dose Admin Acetaminophen 650 mg 08/07/21 11:03 Acetaminophen 325 Mg Tab PO Q4H PRN Pain, Mild (1-3) Carboprost Tromethamine 250 mcg 08/07/21 11:03 Carboprost Tromethamine 250 Mcg/1 Ml Inj IM ONCE PRN Uterine Bleeding Diphenhydramine HCl 12.5 mg 08/09/21 17:13 Diphenhydramine 50 Mg/Ml Vial IV Q2H PRN Itching Ephedrine Sulfate 10 mg 08/09/21 17:13 Ephedrine Sulfate 50 Mg/1 Ml Inj IV Q2M PRN Hypotension Fentanyl 100 mcg 08/07/21 11:03 Fentanyl 100 Mcg/2 Ml Inj IV Q2H PRN Pain,Severe (7-10) LABOR PAIN Lactated Ringer's 1,000 mls @ 125 mls/hr 08/07/21 11:15 08/09/21 18:32 Lactated Ringers IV 125 mls/hr DIRECT MANJULA Administration Oxytocin/Sodium Chloride 30 units in 500 mls @ 40 mls/hr 08/07/21 12:00 08/09/21 23:08 Pitocin/Ns 30 Unit/500ml IV 40 ml/hr TITR MANJULA 40 mls/hr Administration Protocol Oxytocin/Sodium Chloride 30 units in 500 mls @ 0 mls/hr 08/09/21 08:00 08/09/21 22:05 Pitocin/Ns 30 Unit/500ml IV 2 ml/hr TITR MANJULA 2 mls/hr Titration Protocol Per Protocol Ampicillin Sodium 1 gm in 50 mls @ 100 mls/hr 08/09/21 13:00 08/09/21 17:23 Ampicillin/Ns 1 Gm/50 Ml IV 100 mls/hr Q4H MANJULA Administration Protocol Fentanyl/Bupivacaine/Sodium Chlor 200 mcg in 100 mls @ 12 mls/hr 08/09/21 18:00 08/09/21 18:32 Fentanyl-Bupiv 2 Mcg/Ml-0.125% EPIDURAL 12 mls/hr TITR MANJULA Administration Protocol Loperamide HCl 2 mg 08/07/21 11:03 Loperamide 2 Mg Cap PO ONCE PRN give with Hemabate Methylergonovine Maleate 0.2 mg 08/07/21 11:03 Methylergonovine Maleate 0.2 Mg/Ml Vial IM ONCE PRN Uterine Bleeding Mineral Oil 30 ml 08/07/21 11:03 08/09/21 22:27 Mineral Oil 30 Ml Oral Liqd PO 30 ml QHS PRN Administration Constipation Nalbuphine HCl 10 mg 08/07/21 11:03 08/09/21 13:17 Nalbuphine 10 Mg/1 Ml Inj IV 10 mg Q2H PRN Administration Pain, Moderate (4-6) Nalbuphine HCl 2.5 mg 08/09/21 17:13 Nalbuphine 10 Mg/1 Ml Inj IV Q2H PRN Itching Naloxone HCl 0.2 mg 08/09/21 17:13 Naloxone 2 Mg/2 Ml Inj IV Q5M PRN Respiratory sedation Ondansetron HCl 4 mg 08/09/21 17:13 Ondansetron 4 Mg/2 Ml Inj IV Q8H PRN Nausea And Vomiting Oxytocin 10 unit 08/07/21 11:03 Oxytocin 10 Unit/1 Ml Inj IM ONCE PRN Uterine Bleeding Promethazine HCl 25 mg 08/07/21 11:03 Promethazine 25 Mg Rect Supp [place] Q6H PRN N/V if unable to take po Terbutaline Sulfate 0.25 mg 08/07/21 11:03 Terbutaline 1 Mg/1 Ml Inj SUB-Q ONCE PRN Hyperstimulation/Hypertonicity
[2021-08-10] MEDS ORDERED: PROMETHAZINE 25 MG TAB PO PRN (02:11)
[2021-08-10] MEDS ORDERED: MAGNESIUM HYDROXIDE (MOM) ORAL LIQD UDC PO PRN (02:11)
[2021-08-10] MEDS ORDERED: diphenhydrAMINE 25 MG CAP PO PRN (02:11)
[2021-08-10] MEDS ORDERED: WITCH HAZEL/ GLYCERIN PAD TP PRN (02:11)
[2021-08-10] MEDS ORDERED: LANOLIN/ZINC/DIMETHICONE (LANSINOH) 7 GM TP PRN (02:11)
[2021-08-10] MEDS ORDERED: ONDANSETRON 4 MG/2 ML INJ IV PRN (02:11)
[2021-08-10] MEDS ORDERED: PROMETHAZINE 25 MG RECT SUPP PR PRN (02:11)
[2021-08-10] MEDS: oxyCODONE /ACETAMINOPHEN 5-325MG TAB PO PRN ×3 (05:00→17:41)
[2021-08-10] MEDS: IBUPROFEN 600 MG TAB PO SCH ×3 (09:04→21:55)
[2021-08-10] MEDS: DOCUSATE SODIUM 100 MG CAP PO SCH ×2 (09:05→21:54)
[2021-08-10] MEDS: PRENATAL VIT27-FE FUMARATE-FOLIC ACID VIT TAB PO SCH (09:05)
--- NOTE | 2021-08-10 13:26 | Post Anesthesia Evaluation ---
- Post Anesthesia Evaluation Patient Participated: Yes Airway Patent: Yes Stable Respiratory Function: Yes Nausea/Vomiting: No Temp > 96.8F: Yes Pain Manageable: Yes Adequeate Hydration: Yes Anesthesia Complications: No Block Receding Appropriately: Yes Patient on Ventilator: No
[2021-08-10 16:04] LABS: Hematocrit 31.3 % (30.3-42.9)
--- NOTE | 2021-08-11 01:37 | Progress Note ---
Assessment and Plan PPD#2 doing well 1. Routine care and discharge home on motrin prn 2. Both pt and FOB counseled to place baby in the cot for safety and they both refused stating baby is fine in FOB's arms All questions encouraged and answered. Subjective Date of service: 08/11/21 Principal diagnosis: PPD#2 Interval history: pt has no complaints and FOB appears to be sleeping in side chair bed with baby in his arms. I told pt but she states he's fine and is not sleeping. She had to call him twice for him to respond. Pt vag bleed like a period without clots and pt voiding without difficulty. Pain controlled with meds. Objective - Constitutional Vitals: Vital Signs - 12hr 08/10/21 08/10/21 08/10/21 15:47 16:45 17:41 Temperature 97.9 F Pulse Rate 70 Respiratory 16 20 16 Rate Blood Pressure 122/70 [Left] O2 Sat by Pulse Oximetry [ Posterior Bilateral Throughout] 08/10/21 08/10/21 20:00 21:55 Temperature Pulse Rate Respiratory 18 Rate Blood Pressure [Left] O2 Sat by Pulse 100 Oximetry [ Posterior Bilateral Throughout] General appearance: Present: no acute distress - Breasts Breasts: normal - Cardiovascular Rhythm: regular - Genitourinary Female genitourinary: other (Uterus firm, 2cm below umbilicus and non-tender) - Neurologic Neurologic: moves all extremities - Psychiatric Psychiatric: appropriate mood/affect - Labs CBC & Chem 7: 08/10/21 15:44 Labs: Abnormal lab results 08/10/21 Range/Units 15:44 Hgb 10.0 L (10.1-14.3) gm/dl Medications & Allergies - Medications Allergies/Adverse Reactions: Allergies No Known Allergies Allergy (Verified 08/07/21 10:25) Home Medications: Home Medications Medication Instructions Recorded Confirmed Last Taken Type Pnv with Ca,No.71/Iron/FA 1 cap PO DAILY 12/31/13 08/07/21 08/06/21 08:00 History [Vol-Plus Tablet] Active Medications: Generic Name Dose Route Start Last Admin Trade Name Freq PRN Reason Stop Dose Admin Acetaminophen 650 mg 08/07/21 11:03 Acetaminophen 325 Mg Tab PO Q4H PRN Pain, Mild (1-3) Bisacodyl 10 mg 08/10/21 02:11 Bisacodyl 10 Mg Rect Supp [place] BID PRN Constipation Carboprost Tromethamine 250 mcg 08/07/21 11:03 Carboprost Tromethamine 250 Mcg/1 Ml Inj IM ONCE PRN Uterine Bleeding Diphenhydramine HCl 12.5 mg 08/09/21 17:13 Diphenhydramine 50 Mg/Ml Vial IV Q2H PRN Itching Diphenhydramine HCl 25 mg 08/10/21 02:11 Diphenhydramine 25 Mg Cap PO Q6H PRN Itching Docusate Sodium 100 mg 08/10/21 10:00 08/10/21 21:54 Docusate Sodium 100 Mg Cap PO 100 mg BID MANJULA Administration Lactated Ringer's 1,000 mls @ 125 mls/hr 08/07/21 11:15 08/09/21 18:32 Lactated Ringers IV 125 mls/hr DIRECT MANJULA Administration Oxytocin/Sodium Chloride 30 units in 500 mls @ 40 mls/hr 08/07/21 12:00 08/09/21 23:08 Pitocin/Ns 30 Unit/500ml IV 40 ml/hr TITR MANJULA 40 mls/hr Administration Protocol Ibuprofen 600 mg 08/10/21 02:11 08/10/21 21:55 Ibuprofen 600 Mg Tab PO 600 mg Q6HR MANJULA Administration Loperamide HCl 2 mg 08/07/21 11:03 Loperamide 2 Mg Cap PO ONCE PRN give with Hemabate Magnesium Hydroxide 30 ml 08/10/21 02:11 Magnesium Hydroxide (Mom) Oral Liqd Udc PO HS PRN Constipation Methylergonovine Maleate 0.2 mg 08/07/21 11:03 Methylergonovine Maleate 0.2 Mg/Ml Vial IM ONCE PRN Uterine Bleeding Mineral Oil 30 ml 08/07/21 11:03 08/09/21 22:27 Mineral Oil 30 Ml Oral Liqd PO 30 ml QHS PRN Administration Constipation Multi-Ingredient Ointment 1 applic 08/10/21 02:11 Lanolin/Zinc/Dimethicone (Lansinoh) 7 Gm TP PRN PRN Sore Nipples Multivitamins/Iron/Calcium 1 each 08/10/21 10:00 08/10/21 09:05 [id number] Fumarate-Folic Acid Vit Tab PO 1 each QDAY MANJULA Administration Ondansetron HCl 4 mg 08/10/21 02:11 Ondansetron 4 Mg/2 Ml Inj IV Q8H PRN Nausea And Vomiting Oxycodone/Acetaminophen 1 tab 08/10/21 02:11 08/10/21 17:41 Oxycodone /Acetaminophen 5-325mg Tab PO 1 tab Q6H PRN Administration Pain, Moderate (4-6) Oxytocin 10 unit 08/07/21 11:03 Oxytocin 10 Unit/1 Ml Inj IM ONCE PRN Uterine Bleeding Promethazine HCl 25 mg 08/10/21 02:11 Promethazine 25 Mg Rect Supp [place] Q6H PRN Nausea And Vomiting Promethazine HCl 25 mg 08/10/21 02:11 Promethazine 25 Mg Tab PO Q6H PRN Nausea And Vomiting Sodium Chloride 10 ml 08/10/21 02:11 Sodium Chloride 0.9% 10 Ml Flush Syringe IV PRN PRN LINE FLUSH Witch Marleni/Glycerin 1 each 08/10/21 02:11 08/10/21 05:24 Witch Marleni/ Glycerin Pad TP 1 each PRN PRN Administration Hemorrhoid/cleansing/soothing
[2021-08-11] MEDS: oxyCODONE /ACETAMINOPHEN 5-325MG TAB PO PRN ×2 (01:43→08:49)
[2021-08-11] MEDS: IBUPROFEN 600 MG TAB PO SCH ×3 (05:39→13:01)
[2021-08-11] MEDS: PRENATAL VIT27-FE FUMARATE-FOLIC ACID VIT TAB PO SCH (10:39)
[2021-08-11] MEDS: DOCUSATE SODIUM 100 MG CAP PO SCH (10:39)
[2021-08-11 12:15] VITALS: BP 124/72
== END 2021-08-11 14:06 | disposition home or self-care (01) | DRG 775 ==
LOC: LD 09:09 → OB 08-10 01:42
PROVIDERS: ADMIT Obstetrics & Gynecology; ATTEND Obstetrics & Gynecology
PROC: 10E0XZZ Delivery of Products of Conception, External Approach (ICD-10-PCS; principal; 2021-08-09)
PROC: 3E0R3BZ Introduction of Anesthetic Agent into Spinal Canal, Percutaneous Approach (ICD-10-PCS; 2021-08-09)
PROC: 00HU33Z Insertion of Infusion Device into Spinal Canal, Percutaneous Approach (ICD-10-PCS; 2021-08-09)
PROC: 10907ZC Drainage of Amniotic Fluid, Therapeutic from Products of Conception, Via Natural or Artificial Opening (ICD-10-PCS; 2021-08-09)
PROC: 10H07YZ Insertion of Other Device into Products of Conception, Via Natural or Artificial Opening (ICD-10-PCS; 2021-08-09)
PROC: 3E0P7VZ Introduction of Hormone into Female Reproductive, Via Natural or Artificial Opening (ICD-10-PCS; 2021-08-09)
PROC: 0HQ9XZZ Repair Perineum Skin, External Approach (ICD-10-PCS; 2021-08-09)
DX: O76 Abnormality in fetal heart rate and rhythm complicating labor and delivery (principal); O99.824 Streptococcus B carrier state complicating childbirth; Z37.0 Single live birth; Z3A.39 39 weeks gestation of pregnancy; O63.9 Long labor, unspecified; Z20.822 Contact with and (suspected) exposure to COVID-19; O99.214 Obesity complicating childbirth; E66.01 Morbid (severe) obesity due to excess calories; O99.02 Anemia complicating childbirth; O99.52 Diseases of the respiratory system complicating childbirth; J45.909 Unspecified asthma, uncomplicated; O70.0 First degree perineal laceration during delivery
CPT/HCPCS: 36415; 59200; 85014; 85018; 85027; 86592; 86850; 86900; 86901; G0378; J3490; J0290; J2300; J2590; J7120; U0003